=== PATIENT | male | born 1995 | race African-American/Black ===

== ENCOUNTER 2016-06-22 19:47 | Emergency (ER) | payer OTHER ==
[2016-06-22 20:06] VITALS: BP 129/75
--- NOTE | 2016-06-22 20:25 | UC ---
UC General HPI - HPI Summary HPI Summary: cough headache and posible fever for the past three day. - History of Current Complaint Chief Complaint: UCGeneralIllness Stated Complaint: FLU LIKE Time Seen by Provider: 06/22/16 20:14 Hx Obtained From: Patient Onset/Duration: Sudden Onset, Lasting Days Timing: Constant Onset Severity: Moderate Current Severity: Moderate Associated Signs & Symptoms: Positive: Cough, Headache - Allergy/Home Medications Allergies/Adverse Reactions: Allergies Allergy/AdvReac Type Severity Reaction Status Date / Time No Known Allergies Allergy Verified 06/22/16 20:06 Home Medications: Home Medications GuaiFENesin DM* [Robitussin DM*] 10 ml PO Q6H PRN 06/22/16 [History Confirmed ] PMH/Surg Hx/FS Hx/Imm Hx Previously Healthy: Yes - Surgical History Surgical History: Yes Surgery Procedure, Year, and Place: L eye surgery 2011 - Family History Known Family History: Negative: Cardiac Disease, Hypertension - Social History Alcohol Use: Weekly Substance Use Type: None Smoking Status (MU): Never Smoked Tobacco Review of Systems Constitutional: Fever, Fatigue Eyes: Negative ENT: Negative Respiratory: Shortness Of Breath, Cough Cardiovascular: Negative Gastrointestinal: Negative Genitourinary: Negative Motor: Negative Neurovascular: Negative Musculoskeletal: Negative Neurological: Negative Psychological: Negative All Other Systems Reviewed And Are Negative: Yes Physical Exam Triage Information Reviewed: Yes Appearance: No Pain Distress, Well-Nourished, Ill-Appearing Vital Signs: Initial Vital Signs Temp 99.4 F 06/22/16 20:02 Pulse 82 06/22/16 20:02 Resp 14 06/22/16 20:02 BP 129/75 06/22/16 20:02 Pulse Ox 99 06/22/16 20:02 Vital Signs Reviewed: Yes Eye Exam: Normal Eyes: Positive: Conjunctiva Clear ENT Exam: Normal ENT: Positive: Normal ENT inspection, Pharyngeal erythema, TMs normal, Muffled/ hoarse voice Dental Exam: Normal Neck exam: Normal Neck: Positive: Supple, Nontender, No Lymphadenopathy Respiratory: Positive: Chest non-tender, Wheezing, Inspiration Cardiovascular Exam: Normal Cardiovascular: Positive: RRR, No Murmur, Pulses Normal Abdominal Exam: Normal Abdomen Description: Positive: Nontender, No Organomegaly, Soft Bowel Sounds: Positive: Present Musculoskeletal Exam: Normal Musculoskeletal: Positive: Strength Intact, ROM Intact, No Edema Neurological Exam: Normal Neurological: Positive: Alert, Muscle Tone Normal Psychological Exam: Normal Skin Exam: Normal Course/Dx - Course Course Of Treatment: hx obtained, exam performed, medication prescribed. - Differential Dx - Multi-Symptom Provider Diagnoses: wheezing. fever. cough Discharge - Discharge Plan Condition: Stable Disposition: HOME Patient Education Materials: Wheezing (ED) Additional Instructions: take the medications as prescribed. Get plenty of rest and increase your fluid intake.
== END 2016-06-22 20:44 | disposition home or self-care (01) ==
LOC: UCCORT 19:47
DX: R06.2 Wheezing (principal); R50.9 Fever, unspecified; R05 Cough
CPT/HCPCS: 99202; G0463